=== PATIENT | female | born 1980 | race Caucasian/White ===

== ENCOUNTER 2022-04-13 04:28 | Emergency (ER) | payer OTHER, SELFPAY ==
[2022-04-13 04:48] VITALS: BP 141/77; PULSE 75; RESP 17; TEMP 37.8; O2SAT 97; BMI 35.3
[2022-04-13 06:35] LABS: IDNOW Serial# 08D9AD1C; Strep A Nucleic Acid Negative (Negative)
--- NOTE | 2022-04-13 07:22 | ED.URI ---
HPI - URI/Sore Throat General Chief Complaint: Dental/Oral Stated Complaint: pain and swelling in throat, hard to swallow Time Seen by Provider: 04/13/22 07:16 Source: patient Mode of arrival: ambulatory Limitations: no limitations History of Present Illness MD elicited complaint: sore throat, nasal congestion and other (ear pain) Onset (ago): day(s) (1) Consistency: progressively worsening Severity: moderate Description of mucous: clear Able to tolerate fluids by mouth: Yes Exacerbating factors: swallowing Relieving factors: nothing Associated symptoms: fever, nasal congestion, sore throat and ear pain Treatments prior to arrival: none Related Data Previous Rx's Medication Instructions Recorded amoxicillin 875 mg-potassium 1 tab PO BID #14 tabs 04/13/22 clavulanate 125 mg tablet Allergies Allergy/AdvReac Type Severity Reaction Status Date / Time No Known Allergies Allergy Verified 04/13/22 04:51 Review of Systems Review of Systems: Constitutional : positive Fever, no Chills ENT/Mouth : positive sore throat, positive runny nose, pos ear pain Eyes: No Discharge Cardiovascular : No Chest Pain, No SOB Respiratory : No Cough, No Sputum Gastrointestinal : No Nausea, No Vomiting, No Diarrhea Genitourinary : No Dysuria, No Urinary Frequency Musculoskeletal : no Myalgia Skin : No rash Neuro : No Headache PMFSH Past Medical History Attestation statement: The following information was validated with the patient. Medical History (Updated 04/13/22 @ 08:15 by Dayana Méndez DO) Hypothyroidism Social History Social History (Updated 04/13/22 @ 07:28 by Dayana Méndez DO) Patient Tobacco Use Status: Never used Tobacco Advance Directives: No Physical Exam Vital Signs: Vital Signs: Last Vital Signs Temp 100.0 F 04/13/22 04:48 Pulse 75 04/13/22 04:48 Resp 17 04/13/22 04:48 BP 141/77 H 04/13/22 04:48 Pulse Ox 97 04/13/22 04:48 O2 Del Method 04/13/22 04:48 BMI result Body Mass Index 35.3 Appearance: Alert. Oriented X3. No acute distress. Eyes: Pupils equal, round and reactive to light. ENT: Pharynx mild erythema no exudates, uvula midline, mild swelling, bilateral TMs normal Neck: Normal inspection. Neck supple. no lymphadenopathy felt CVS: Normal heart rate and rhythm. Pulses normal. Respiratory: No respiratory distress. Breath sounds normal. Abdomen: Soft and nontender. Skin: Skin warm and dry. Normal skin color. Extremities: No lower extremity edema. Neuro: Oriented X 3. No motor deficit. No sensory deficit. Course Course Course Narrative: negative swabs will treat as possible sinusitis given her complaints of sinus pressure and congestion with fever MDM - URI/Sore Throat MDM Narrative Medical decision making narrative: 42 yo female with hx of hypothyroidism here with c/o sore throat, runny nose, ear pain since yesterday - she has no signs of significant swelling or airway issues, strep is negative. Ears are not infected - will obtain flu and COVID swabs and reassess. Dispo per results and findings. Lab Data Labs: Lab Results 04/13/22 04/13/22 04/13/22 Range/Units 06:05 07:43 07:43 COVID-19 ([facility]) Negative (Negative) COVID-19 Clin Com See Note Influenza Type A ([facility]) Negative (Negative) Influenza Type B ([facility]A) Negative (Negative) Influenza A & B Note See Note S. pyogenes GrpA MITA Negative (Negative) Discharge Plan Discharge Clinical Impression: Pharyngitis Qualifiers: Pharyngitis/tonsillitis etiology: unspecified etiology Qualified Code(s): J02.9 - Acute pharyngitis, unspecified Sinusitis Qualifiers: Sinusitis location: maxillary Chronicity: acute Recurrence: non-recurrent Qualified Code(s): J01.00 - Acute maxillary sinusitis, unspecified Patient Disposition: Home, Self-Care Instructions: Pharyngitis (ED), Sinusitis (ED) Additional Instructions: return to ED for any worsening symptoms or concerns negative covid, strep, flu take probiotics while on antibiotics Prescriptions: New amoxicillin-pot clavulanate 875-125 mg tablet 1 tab PO BID Qty: 14 0RF
[2022-04-13 08:08] LABS: COVID-19 Test Negative (Negative)
[2022-04-13 08:13] LABS: IDNOW Serial# 55D5AD1C; Influenza A Negative (Negative); Influenza B2 Negative (Negative)
== END 2022-04-13 08:34 | disposition home or self-care (01) ==
PROVIDERS: Emergency Provider Emergency Medicine; PCP Internal Medicine
DX: J02.9 Acute pharyngitis, unspecified (principal); J01.00 Acute maxillary sinusitis, unspecified; R50.9 Fever, unspecified; Z20.822 Contact with and (suspected) exposure to COVID-19; Z79.899 Other long term (current) drug therapy
CPT/HCPCS: 36415; 87502; 87635; 87651; 99282; 99283